=== PATIENT | female | born 1975 | race Caucasian/White ===

== ENCOUNTER 2020-12-01 08:38 | Emergency (ER) | payer BC, SELFPAY ==
[2020-12-01 08:50] VITALS: BP 138/100; PULSE 68; RESP 18; TEMP 36.6; O2SAT 98
[2020-12-01 09:39] LABS: Add Urine Microscopic? YES; Appearance Urine Cloudy (Clear); Bilirubin Urine Negative (Negative); Blood Urine 3+ (Negative); Color Urine Red (Yellow); Glucose Urine UA Negative (Negative); Ketones Urine Negative (Negative); Leukocyte Esterase Ur Negative LEU/UL (Negative); Nitrate Urine Positive (Negative); Protein Urine 3+ mg/dL (Negative); RBC Urine >75 /hpf (0-2); Specific Grav Ur 1.014 (1.001-1.035); WBC Clumps Urine Present /HPF
[2020-12-01 09:58] LABS: WBC Urine 51-75 /hpf
--- NOTE | 2020-12-01 10:44 | ED.GENADULT ---
HPI - General Adult General Chief complaint: Urogenital-Female Stated complaint: UTI symptoms Time Seen by Provider: 12/01/20 10:19 Source: patient Mode of arrival: ambulatory Limitations: no limitations History of Present Illness HPI narrative: Patient presents for evaluation of suprapubic pressure and urinary frequency since this morning at 0500. She states she has a history of urinary tract infections and her current symptoms are consistent with those experienced with urinary tract infections in the past. She has any fever, chills, nausea, vomiting, back/flank pain, dysuria. No vaginal bleeding or discharge. History of tubal ligation. No additional complaints or concerns. Related Data Allergies Allergy/AdvReac Type Severity Reaction Status Date / Time No Known Allergies Allergy Verified 12/01/20 08:53 Review of Systems Review of Systems: Narrative: CONSTITUTIONAL: Denies fever, chills, or sweats. EYES: Denies visual changes, redness, or discharge. ENT: Denies rhinorrhea, congestion, sore throat, or otalgia. CARDIOVASCULAR: Denies chest pain, palpitations, or edema. RESPIRATORY: Denies cough or dyspnea. GASTROINTESTINAL: Reports suprapubic pressure. Denies nausea, vomiting, or diarrhea. GENITOURINARY: Reports urinary frequency. Denies dysuria or hematuria. SKIN: Denies rash or itching. MUSCULOSKELETAL: Denies back pain, joint pain, or myalgia. NEUROLOGIC: Denies headache, numbness, dizziness, or weakness. PSYCHIATRIC: Denies anxiety or depression. PMFSH Past Medical History Medical History (Updated 12/01/20 @ 10:51 by Juan F Damian, [employer], ) Recurrent urinary tract infection Surgical History Surgical History History of tubal ligation Family History Family History Father Hypertension Tobacco abuse Social History Social History Smoking status: Never smoker Substance use: never Living arrangements: with family Gender identity (if verbalized by the patient): Female Sexual Orientation (if Verbalized by the Patient): Straight or Heterosexual Exam Narrative: Exam Narrative: GENERAL: Well-appearing, well-nourished, and in no acute distress. HEAD: Normocephalic, atraumatic. EYES: PERRLA and EOMI. ENT: Nares clear, no rhinorrhea or epistaxis. Mucous membranes moist. Oropharynx without tonsillar hypertrophy exudate or other lesions. Bilateral TMs pearly reeves nonbulging NECK: Supple. No adenopathy or masses. No carotid bruits or JVD CHEST: Clear to auscultation. No respiratory distress. No wheezes rales or rhonchi HEART: Regular rate and rhythm. No murmur heard. Normal peripheral pulses. ABDOMEN: Soft, nontender, nondistended, normal active bowel sounds. EXTREMITIES: Normal range of motion. No edema. SKIN: Warm, dry, no rash. NEURO: No focal deficits. Alert and oriented x3. PSYCH: Normal mood and affect. Course Course Emergency Course: This is a 45-year-old female who presented with suprapubic pressure and urinary frequency which started this morning. She has a history of recurrent urinary tract infections. UA consistent with UTI. Will dc with macrobid and recommendations for outpatient follow up. Return for worsening symptoms Vital Signs Vital signs: Vital Signs Temperature 36.6 C 12/01/20 08:50 Pulse Rate 68 12/01/20 08:50 Respiratory Rate 18 12/01/20 08:50 Blood Pressure 138/100 H 12/01/20 08:50 Pulse Oximetry 98 12/01/20 08:50 Temperature 36.6 C 12/01/20 08:50 Pulse Rate 68 12/01/20 08:50 Respiratory Rate 18 12/01/20 08:50 Blood Pressure 138/100 H 12/01/20 08:50 Pulse Oximetry 98 12/01/20 08:50 Medical Decision Making Differential Diagnosis Differential Diagnosis: Urinary tract infection complicated versus uncomplicated versus interstitial cystitis versus bacterial
[2020-12-01 10:56] VITALS: BP 130/77; PULSE 67; RESP 14; O2SAT 99
== END 2020-12-01 10:57 | disposition home or self-care (01) ==
PROVIDERS: Emergency Medicine; Emergency Provider Nurse Practitioner
DX: N30.01 Acute cystitis with hematuria (principal)
CPT/HCPCS: 81001; 87077; 87086; 87088; 87186; 99283

== ENCOUNTER 2022-06-22 00:23 | Emergency (ER) | payer BC, SELFPAY ==
[2022-06-22 00:30] VITALS: BP 128/81; PULSE 62; RESP 16; TEMP 36.5; O2SAT 99
[2022-06-22 01:15] LABS: Appearance Urine Clear (Clear); Bilirubin Urine 1+ (Negative); Blood Urine 3+ (Negative); Glucose Urine UA Trace mg/dL (Negative); Ketones Urine Trace mg/dL (Negative); Leukocyte Esterase Ur 2+ LEU/UL (Negative); Nitrate Urine Positive (Negative); Protein Urine 2+ mg/dL (Negative); Specific Grav Ur 1.025 (1.001-1.035)
[2022-06-22 01:20] LABS: RBC Urine >75 /hpf (0-2); WBC Urine 21-30 /hpf
[2022-06-22 01:22] LABS: Add Urine Microscopic? YES; Color Urine Red (Yellow)
--- NOTE | 2022-06-22 04:36 | ED.FEMALEGU ---
HPI - Female Genitourinary General Chief complaint: Urogenital-Female Stated complaint: bladder infection Time Seen by Provider: 06/22/22 04:08 History of Present Illness HPI Narrative: Patient is a 47-year-old female who presents ER with concerns for UTI. Patient reports she began having lower abdominal discomfort with bladder spasms just this evening. Does have dysuria. No fever chills or sweats. No radiation to the back. Reports she has history of frequent bladder infection. She took some Azo. Related Data Allergies Allergy/AdvReac Type Severity Reaction Status Date / Time No Known Allergies Allergy Verified 12/01/20 08:53 Review of Systems Constitutional: Constitutional: Denies chills and Denies fever(s) Gastrointestinal: Gastrointestinal: Reports abdominal pain, Denies diarrhea, Denies nausea and Denies vomiting Genitourinary: Genitourinary: Denies hematuria, Reports nocturia and Reports dysuria PMFSH Past Medical History Medical History (Updated 06/22/22 @ 04:39 by Moustapha Chen MD) Recurrent urinary tract infection Surgical History Surgical History History of tubal ligation Family History Family History Father Hypertension Tobacco abuse Social History Social History Smoking status: Never smoker Substance use: never Gender identity (if verbalized by the patient): Female Sexual Orientation (if Verbalized by the Patient): Straight or Heterosexual Exam Narrative: GENERAL: Well-appearing, well-nourished, and in no acute distress. HEAD: Normocephalic, atraumatic. CHEST: Clear to auscultation. No respiratory distress. HEART: Regular rate and rhythm. Normal peripheral pulses. ABDOMEN: Soft, nontender, nondistended, no CVA tenderness. NEURO: Alert and oriented x3. PSYCH: Normal mood and affect. Course Course Emergency Course: Keflex here. Discharged with prescription for Vital Signs Vital signs: Vital Signs Temperature 97.7 F 06/22/22 00:30 Pulse Rate 62 06/22/22 00:30 Respiratory Rate 16 06/22/22 00:30 Blood Pressure 128/81 06/22/22 00:30 Pulse Oximetry 99 06/22/22 00:30 Oxygen Delivery Room Air 06/22/22 00:30 Temperature 97.7 F 06/22/22 00:30 Pulse Rate 62 06/22/22 00:30 Respiratory Rate 16 06/22/22 00:30 Blood Pressure 128/81 06/22/22 00:30 Pulse Oximetry 99 06/22/22 00:30 Oxygen Delivery Room Air 06/22/22 00:30 MDM - Female Genitourinary Lab Data Labs: Lab Results 06/22/22 Range/Units 00:33 Urine Color Red H (Yellow) Urine Appearance Clear (Clear) Urine pH 5.0 (5.0-9.0) Ur Specific [place] 1.025 (1.001-1.035) Urine Protein 2+ H (Negative) mg/dL Urine Glucose (UA) Trace H (Negative) mg/dL Urine Ketones Trace (Negative) mg/dL Ur Blood (Man) 3+ H (Negative) Urine Nitrate Positive H (Negative) Urine Bilirubin 1+ H (Negative) Urine Urobilinogen 2.0 H (<2.0) mg/dL Leukocyte Esterase Rfl 2+ H (Negative) KAI/UL Urine RBC >75 H (0-2) /hpf Urine WBC 21-30 H /hpf Discharge Plan Discharge Clinical Impression: Urinary tract infection Patient Disposition: Home, Self-Care Condition: Stable Instructions: Antibiotic Form, Urinary Tract Infection in Women (ED) Additional Instructions: Return the ER if you cannot keep down food or water, you have fever 0.4 ?F, you have worsening abdominal discomfort, you have additional concerns. Prescriptions: New cephalexin 500 mg capsule 500 mg PO Q12H Qty: 10 0RF No Action nitrofurantoin monohyd/m-cryst [Macrobid] 100 mg capsule 100 mg PO Q12H 7 Days Qty: 14 0RF Rx Instructions: must administer with a meal/food Follow-up/Referrals: PHYSICIAN,SPORTS JOURNALIST [Primary Care Provider] -
[2022-06-22] MEDS: CEPHALEXIN 500 MG CAPSULE PO (05:24)
== END 2022-06-22 05:31 | disposition home or self-care (01) ==
PROVIDERS: Emergency Provider Emergency Medicine
DX: N39.0 Urinary tract infection, site not specified (principal)
CPT/HCPCS: 81001; 87077; 87086; 87147; 87181; 87186; 99283; A9270